=== PATIENT | female | born 1980 | race Hispanic/Latino ===

== ENCOUNTER 2021-10-14 13:36 | Emergency (ER) | payer SELFPAY ==
--- NOTE | 2021-10-14 14:48 | Emergency Department Report ---
ED General Adult HPI - General Chief complaint: Headache Stated complaint: MIGRAINE,COUGHING UP GREEN, NAUSEA PUI?: Yes Time Seen by Provider: 10/14/21 14:38 Source: patient Mode of arrival: Ambulatory Limitations: No Limitations - History of Present Illness Initial comments: This is a 41-year-old female with a past medical history of migraine and asthma who presents ED complaining of greenish productive cough x3 days. Patient states that she cannot recall being or anyone that is been sick but her cough is gotten progressively worse intermittent throughout the day causing her to have a migraine headache. Patient states headache is intermittent and aching in nature localized to the frontal region. Patient rated about 6 out of 10 intensity. Patient notes that she thinks she has had some loss of taste and smell past couple of days. Patient denies any fever, chills, nausea or vomiting, abdominal pain or chest pain or shortness of breath Severity scale (0 -10): 7 - Related Data Previous Rx's Medication Instructions Recorded Last Taken Type Acetamin/Codeine 120-12Mg/5 ml 5 ml PO TID PRN 4 Days #60 ml 10/14/21 Unknown Rx [Tylenol/Codeine] Albuterol Mdi (or & Nicu Only) 2 puff IH PRN PRN #1 pump 10/14/21 Unknown Rx [ProAir HFA Inhaler] Benzonatate [Tessalon Perles] 100 mg PO Q8HR #30 capsule 10/14/21 Unknown Rx predniSONE [Deltasone] 20 mg PO QDAY #5 tab 10/14/21 Unknown Rx Allergies Allergy/AdvReac Type Severity Reaction Status Date / Time No Known Allergies Allergy Verified 10/14/21 14:50 ED Review of Systems ROS: Stated complaint: MIGRAINE,COUGHING UP GREEN, NAUSEA Other details as noted in HPI Comment: All other systems reviewed and negative ED Past Medical Hx - Past Medical History Previous Medical History?: Yes Hx Hypertension: Yes Hx Asthma: Yes - Surgical History Past Surgical History?: Yes Hx Coronary Stent: No Hx Open Heart Surgery: No Hx Pacemaker: No Hx Internal Defibrillator: No Hx Cholecystectomy: No Hx Appendectomy: No Hx Breast Surgery: No - Medications Home Medications: Home Medications Medication Instructions Recorded Confirmed Last Taken Type Acetamin/Codeine 120-12Mg/5 ml 5 ml PO TID PRN 4 Days #60 ml 10/14/21 Unknown Rx [Tylenol/Codeine] Albuterol Mdi (or & Nicu Only) 2 puff IH PRN PRN #1 pump 10/14/21 Unknown Rx [ProAir HFA Inhaler] Benzonatate [Tessalon Perles] 100 mg PO Q8HR #30 capsule 10/14/21 Unknown Rx predniSONE [Deltasone] 20 mg PO QDAY #5 tab 10/14/21 Unknown Rx ED Physical Exam - General Limitations: No Limitations - Head Head exam: Present: atraumatic - Eye Eye exam: Present: normal appearance Pupils: Present: normal accommodation - ENT ENT exam: Present: normal exam - Neck Neck exam: Present: normal inspection, full ROM. Absent: tenderness - Respiratory Respiratory exam: Present: wheezes, rales. Absent: respiratory distress, rhonchi, stridor, chest wall tenderness - Cardiovascular Cardiovascular Exam: Present: regular rate, normal rhythm, normal heart sounds - GI/Abdominal GI/Abdominal exam: Present: soft, distended. Absent: tenderness, guarding - Extremities Exam Extremities exam: Present: normal inspection - Back Exam Back exam: Present: normal inspection - Neurological Exam Neurological exam: Present: alert, oriented X3, normal gait - Psychiatric Psychiatric exam: Present: normal affect - Skin Skin exam: Present: warm, dry ED Course Vital Signs 10/14/21 10/14/21 10/14/21 13:53 14:50 14:51 Temperature 98.9 F Pulse Rate 98 H 77 Respiratory 20 Rate Blood Pressure 121/78 Blood Pressure 133/95 [Right] O2 Sat by Pulse 93 99 97 Oximetry 10/14/21 14:55 Temperature 98.2 F Pulse Rate 77 Respiratory 20 Rate Blood Pressure Blood Pressure 121/78 [Right] O2 Sat by Pulse 100 Oximetry ED Medical Decision Making - Radiology Data Radiology results: report reviewed XR chest routine 2V INDICATION / CLINICAL INFORMATION: cough. COMPARISON: None available. FINDINGS: SUPPORT DEVICES: None. HEART /PULMONARY VASCULATURE: No significant abnormality. LUNGS / PLEURA: No significant pulmonary or pleural abnormality. No pneumothorax. ADDITIONAL FINDINGS: No significant additional findings. IMPRESSION: 1. No acute findings. Signer Name: Israel Valenzuela MD Signed: 10/14/2021 3:07 PM Workstation Name: [id number] Transcribed By: ADELITA Dictated By: ISRAEL VALENZUELA MD Electronically Authenticated By: ISRAEL VALENZUELA MD Signed Date/Time: 10/14/21 1507 - Medical Decision Making 41-year-old female presents with URI. no fever during the ED stay. CXR normal Discussed increase fluids and diet intake. Discussed rest much needed. Discussed daily vitamin C for immune booster. Discussed follow-up with pcp in 3-5 days. Patient verbally states she understands and will comply the following instructions and follow-up Vital signs stable. Patient is in no acute distress Critical care attestation.: If time is entered above; I have spent that time in minutes in the direct care of this critically ill patient, excluding procedure time. ED Disposition Clinical Impression: URI (upper respiratory infection), Bronchitis, Asthma Disposition: HOME / SELF CARE / HOMELESS Is pt being admited?: No Does the pt Need Aspirin: No Condition: Stable Instructions: Chronic Bronchitis (ED), Upper Respiratory Infection, Adult, [id number], Cough, Adult, [id number], Asthma (ED) Additional Instructions: Make sure to follow up with the primary care physician as discussed. Take all your medications as you've been prescribed. If you have any worsening symptoms or develop new symptoms please return to ED immediately. Referrals: [facility] [place][Note 3] [Outside] - 3-5 Days [facility] [address] [Outside] - 3-5 Days Forms: Work/School Release Form(ED) Time of Disposition: 16:27
[2021-10-14] MEDS ORDERED: dexAMETHasone 20 MG/5 ML VIAL IV ONE (15:00)
[2021-10-14] MEDS ORDERED: diphenhydrAMINE 50 MG/ML VIAL IV ONE (15:00)
[2021-10-14] MEDS ORDERED: ONDANSETRON 4 MG/2 ML INJ IV ONE (15:00)
--- NOTE | 2021-10-14 15:11 | XRay Report ---
XR chest routine 2V INDICATION / CLINICAL INFORMATION: cough. COMPARISON: None available. FINDINGS: SUPPORT DEVICES: None. HEART /PULMONARY VASCULATURE: No significant abnormality. LUNGS / PLEURA: No significant pulmonary or pleural abnormality. No pneumothorax. ADDITIONAL FINDINGS: No significant additional findings. IMPRESSION: 1. No acute findings. Signer Name: Sukh Tripp MD Signed: 10/14/2021 3:07 PM Workstation Name: [id number]
[2021-10-14] MEDS ORDERED: ONDANSETRON 4 MG ODT TAB PO ONE (16:47)
[2021-10-14] MEDS ORDERED: BUTALB/ACETAMINOPHEN/CAFFEINE TAB PO ONE (16:47)
[2021-10-14 17:18] VITALS: BP 121/74
== END 2021-10-14 17:48 | disposition home or self-care (01) ==
LOC: ED 13:36
DX: J06.9 Acute upper respiratory infection, unspecified (principal); J40 Bronchitis, not specified as acute or chronic; I10 Essential (primary) hypertension; Z79.899 Other long term (current) drug therapy
CPT/HCPCS: 71046; 96374; 96375; 99283; J1100; J1200; J2405; J3490; Q0162